=== PATIENT | female | born 2000 | race Caucasian/White ===

== ENCOUNTER 2019-11-09 06:46 | Observation (INO) | payer OTHER ==
[~2019-11-09] VITALS: Ht 162.6 cm; Wt 83.9 kg
[2019-11-09 06:52] VITALS: BP 126/73
[2019-11-09 07:03] LABS: URINE BILIRUBIN NEGATIVE (Negative); URINE BLOOD NEGATIVE (Negative); URINE CLARITY CLEAR; URINE COLOR YELLOW; URINE GLUCOSE-RANDOM NEGATIVE (Negative); URINE KETONES TRACE (Negative); URINE LEUKOCYTES-REFLEX NEGATIVE (Negative); URINE NITRITE-REFLEX NEGATIVE (Negative); URINE PROTEIN NEGATIVE (Negative); URINE UROBILINOGEN 0.2 E.U./dl (0.2-1.0)
[2019-11-09 07:11] LABS: ABSOLUTE BASOPHILS 0.1 thou/uL (0.0-0.2); ABSOLUTE EOSINOPHILS 0.1 thou/uL (0.0-0.7); ABSOLUTE LYMPHOCYTES 1.6 thou/uL (0.8-5.3); ABSOLUTE NEUTROPHILS 12.6 thou/uL (1.6-8.1); BASOPHILS 0.5 %; EOSINOPHILS 0.5 %; HEMATOCRIT 40.8 % (37.0-47.0); LYMPHOCYTES 10.5 %; MCH 29.6 pg (26.0-34.0); MCHC 34.3 g/dL (28.0-37.0); MCV 86.2 fL (80.0-100.0); MONOCYTES 6.6 %; MPV 7.5 fl. (7.2-11.1); NUCLEATED RBCS 0 /100WBC; PLATELET COUNT* 205 thou/uL (150-400); POLYS 81.9 %; RBC 4.73 mil/uL (4.20-5.00); RDW-CV 12.2 % (10.5-14.5); WBC 15.4 thou/uL (4.0-11.0)
[2019-11-09 07:16] LABS: CALCIUM 8.5 mg/dL (8.5-10.1); CREATININE 0.9 mg/dL (0.6-1.3)
[2019-11-09 07:20] LABS: ALBUMIN 4.3 g/dL (3.4-5.0); TOTAL BILIRUBIN 0.6 mg/dL (<0.1-1.0); TOTAL PROTEIN 7.4 g/dL (6.4-8.2)
[2019-11-09 09:34] VITALS: BP 123/71
[2019-11-09 11:27] VITALS: BP 123/71
--- NOTE | 2019-11-11 14:08 | PATH ---
[address] [address] PATHOLOGY RPT PROCEDURE Name: VESTA URIARTE Room: [address] Oswald Jordan#: [id number] Admission: 11/09/19 Date of : 99 Discharge: 11/09/19 Report #: [id number] Path Case #: [id number] [facility] Accession Number: [id number] . 01 Material submitted: . appendix - APPENDIX . 01 Clinical history: . Acute appendicitis . 02 Diagnosis: Appendix: - Acute appendicitis, periappendicitis and serositis. (BENNETT:maura; 11/11/2019) [facility] [place] 11/11/2019 1041 Local . 02 Electronically signed: . Asim Chand MD, Pathologist NPI- [id number] . 01 Gross description: . The specimen is received in formalin, labeled "Jackie, Evsta, appendix" and consists of an intact appendix measuring 7.2 x 2.3 x 1.1 cm with a mesoappendix measuring 0.9 cm in thickness. The margin is inked black. The serosa is allred-zambrano with thick white fibrous adhesions. Sectioning reveals a lumen dilated up to 1.6 cm with 2 fecaliths measuring up to 1.2 cm and pink-zambrano fecal material. Services Tech sections are submitted in A1-A3. (JOSEFINA; 11/10/2019) CARLOSQ/JAMIE 11/10/2019 1346 Local . 02 Pathologist provided ICD-10: K35.80 . 02 CPT . 582425 Specimen Comment: A courtesy copy of this report has been sent to [phone] Specimen Comment: Report sent to Performed at: [address], [place], [place] [id number] MD Jose F Lopez MD Phone: [phone] Performed at: 02 [facility] [address], [place], [place] [id number] MD Asim Chand MD Phone: [phone]
--- NOTE | 2019-11-12 08:06 | OP ---
[address] [address] OPERATIVE REPORT Name: VESTA URIARTE Room: [address] Oswald Jordan#: [id number] Admission: 11/09/19 Attend Phys: Parul Morgan DO Discharge: 11/09/19 Date of : 99 Report #: [id number] THIS REPORT FOR: //name// cc: DONALD River family physician/PCP DONALD River family physician/PCP ~ THIS REPORT FOR: //name// CC: Parul BENNETT physician/PCP DICTATED BY: Toribio Ty DO DATE OF SERVICE: 11/09/2019 PREOPERATIVE DIAGNOSIS: Acute appendicitis with localized peritonitis. POSTOPERATIVE DIAGNOSIS: Acute appendicitis with localized peritonitis. SURGEON: Parul Morgan DO COMMISSIONED [employer] OFFICER: Toribio Ty, PGY4. OPERATION PERFORMED: Laparoscopic appendectomy. ANESTHESIA: General and local. ESTIMATED BLOOD LOSS: 2 mL. SPECIMEN: Appendix. COMPLICATIONS: None. INDICATIONS: The patient is a 19-year-old female who presented with 2 days of diffuse abdominal pain and nausea. She was found to have a leukocytosis. CT showed a markedly dilated appendix with some surrounding inflammation and appendicolith. Clinical findings were suggestive of acute appendicitis. She was informed of the risks and benefits of laparoscopic appendectomy with risks including but not limited to bleeding, infection, injury to bowel or bladder. She understood these risks and decided to proceed with surgery. TECHNIQUE: After informed consent was obtained, the patient was brought to the operating room and placed in the supine position. SCDs were on and running. Preoperative Ancef was delivered. General anesthesia was administered with an ET tube. The patient was prepped and draped in the usual sterile fashion. A surgical pause was held to confirm proper patient and procedure. Infraumbilical skin was infiltrated with 0.5% Marcaine. Skin was then [place] [address] OPERATIVE REPORT Name: CHAPITOVESTA Room: [address] Oswald Jordan#: [id number] Admission: 11/09/19 Attend Phys: Parul Morgan DO Discharge: 11/09/19 Date of : 99 Report #: [id number] Adson's and incised using 11 blade. Dissection was bluntly carried down to the fascia, which was elevated with 2 Kochers and incised with cautery. Peritoneum was bluntly entered using a Cary, 0 Vicryl was used for stay sutures on either side of the fascia, which was secured the Reji trocar. Abdomen was insufflated. A brief exploration of the abdomen was undertaken. There was some fluid in the pelvis that did not appear to be purulent. A 5 mm port was placed in the left lower quadrant under direct visualization. A laparoscopic Ahfsa was used to reflect the small bowel superiorly and medially identifying a large, inflamed and dilated appendix. A 5 mm port was then placed in the suprapubic region under direct visualization. Babcocks were then used to gently breakaway the appendix from the small bowel mesentery, which was lightly adhesed. The appendix was then elevated and a [place] was used to create a window at the base of the appendix. A 45 mm Covidien purple load stapler was then fired across the base of the appendix. The appendix was elevated and an additional 2 purple loads were fired across the mesoappendix. There was a 2 small areas of bleeding from the mesoappendix staple line, which were controlled using cautery. A small filmy attachment was taken down from the appendix to the mesoappendix using cautery as well. The EndoCatch bag was then introduced into the abdomen. The appendix was placed within it. The right lower quadrant was once more inspected. Under decreasing insufflation, it was still hemostatic. The two 5 mm ports were removed under direct visualization. The Reji trocar and appendix were removed through the umbilical incision. Previous stay sutures were elevated and replaced with Kochers. A single of [id number] using 0 Vicryl was used to close the fascia. Wounds were then closed with 4-0 Monocryl. Additional 0.5% Marcaine was injected at all incisions. Wounds were cleansed and dressed with Mastisol, Steri-Strips, 4 x 4's, and Tegaderms. The patient tolerated the procedure well. All counts were correct. There were no complications. The patient was emerged from anesthesia and transferred to the PACU in stable condition. <ELECTRONICALLY SIGNED> By: Parul Morgan DO 11/12/19 0806 [id number] fernando Morgan DO /nt
== END 2019-11-09 11:00 | disposition home or self-care (01) ==
LOC: M.ERS 06:46 → M.SUR 06:46 → M.TBA 09:08 → M.SUR 09:08 → M.TBA-ER 09:08 → M.ERS 09:36 → M.SUR 10:54 → M.TBA 10:54 → M.TBA-ER 11:00
PROVIDERS: Emergency Medicine; ADMIT Surgery
DX: K35.30 Acute appendicitis with localized peritonitis, without perforation or gangrene (principal); R11.0 Nausea; D72.829 Elevated white blood cell count, unspecified

== ENCOUNTER 2020-01-08 12:16 | Emergency (ER) | payer BC ==
[~2020-01-08] VITALS: Ht 165.1 cm; Wt 83.9 kg
[2020-01-08 13:23] VITALS: BP 125/75
== END 2020-01-08 13:23 | disposition home or self-care (01) ==
LOC: M.ERS 12:16
DX: T74.21XA Adult sexual abuse, confirmed, initial encounter (principal); S10.93XA Contusion of unspecified part of neck, initial encounter; Z88.1 Allergy status to other antibiotic agents